=== PATIENT | male | born 1970 | race Two or more races ===

== ENCOUNTER 2017-11-02 14:30 | Emergency (ER) | payer SELFPAY ==
[~2017-11-02] VITALS: Ht 182.9 cm; Wt 90.7 kg
--- NOTE | 2017-11-02 14:35 | NUR ---
PT BIBRA FROM HOME TO ER BED 14. PER REPORT, POSSIBLE OD TO HEROIN. 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 ADMITS TO BEEN DRINKING. PLACED ON MONITOR. STABLE VITALS. AWAITING MD BRAVO.
--- NOTE | 2017-11-02 14:54 | NUR ---
DR VALLES AT BEDSIDE FOR EVAL.
--- NOTE | 2017-11-02 14:58 | NUR ---
COOK BOAT AT BEDSIDE FOR BLOOD DRAW.
[2017-11-02 15:05] LABS: BASOPHILS # (AUTO) 0.1 /CMM (0.0-0.2); BASOPHILS % (AUTO) 0.7 % (0.0-2.0); EOSINOPHILS # (AUTO) 0.2 /CMM (0.0-0.7); EOSINOPHILS % (AUTO) 2.5 % (0.0-6.0); HEMATOCRIT 44 % (39-51); HEMOGLOBIN 15.2 g/dL (13.5-17.5); LYMPHOCYTES # (AUTO) 1.6 /CMM (0.8-4.8); LYMPHOCYTES % (AUTO) 20.3 % (20.0-44.0); MEAN CORPUSCULAR HEMOGLOBIN 32 PG (26.0-33.0); MEAN CORPUSCULAR HGB CONC 34 g/dl (31.0-36.0); MEAN CORPUSCULAR VOLUME 92 fL (80-96); MONOCYTES # (AUTO) 0.5 /CMM (0.1-1.30); MONOCYTES % (AUTO) 6.6 % (2.0-12.0); NEUTROPHILS # (AUTO) 5.4 /CMM (1.8-8.9); NEUTROPHILS % (AUTO) 69.9 % (43.0-81.0); PLATELET COUNT (AUTO) 339 /CMM (150-450); RDW COEFFICIENT OF VARIATION 12.2 (11.5-15.0); RED BLOOD CELL COUNT(AUTO) 4.82 MIL/uL (4.5-6.0); WHITE BLOOD COUNT (AUTO) 7.8 K/uL (4.3-11.0)
[2017-11-02 15:24] LABS: ALANINE AMINOTRANSFERASE 50 U/L (12-78); ALBUMIN 3.8 g/dL (3.4-5.0); ALCOHOL, BLOOD 138 mg/dL (0-0); ALKALINE PHOSPHATASE 114 U/L (46-116); ASPARTATE AMINOTRANSFERASE 86 U/L (15-37); BILIRUBIN,DIRECT 0.1 mg/dL (0.0-0.2); BILIRUBIN,TOTAL 0.3 mg/dL (0.2-1.0); CALCIUM, SERUM 9.1 mg/dL (8.5-10.1); CARBON DIOXIDE 26 mmol/L (21-32); CHLORIDE 107 mmol/L (98-107); GLUCOSE 103 mg/dL (74-106); POTASSIUM 3.5 mmol/L (3.5-5.1); SODIUM SERUM 143 mmol/L (136-145); UREA NITROGEN, BLOOD 12 mg/dL (7-18)
[2017-11-02 15:25] LABS: ACETAMINOPHEN < 2 ug/ml (10-30); SALICYLATE 1.7 mg/dL (2.8-20.0)
--- NOTE | 2017-11-02 16:02 | NUR ---
PT STILL REFUSING TO PROVIDE URINE SAMPLE.
[2017-11-02 17:37] LABS: APPEARANCE,URINE Clear (CLEAR); BILIRUBIN,URINE Negative (NEGATIVE); BLOOD, URINE Trace-intact Ery/uL (NEGATIVE); COLOR,URINE Yellow (YELLOW); KETONES,URINE Negative (NEGATIVE); LEUKOCYTE ESTERASE ,URINE Negative (NEGATIVE); NITRITE, URINE Negative (NEGATIVE); PROTEIN,URINE 30 mg/dl (NEGATIVE); UGLUCOSE Negative (NEGATIVE); UROBILINOGEN,URINE 0.2 EU/dL (0.2)
[2017-11-02 17:56] LABS: BACTERIA,URINE Rare /HPF (None Seen); HYALINE CASTS, URINE Few /LPF (None Seen); MUCUS,URINE Few /LPF (None Seen); SQUAMOUS EPITHELIAL CELL,UR Few /HPF (None Seen); WBC,URINE 0-2 /HPF (0-3)
[2017-11-02 18:27] VITALS: BP 145/89
--- NOTE | 2017-11-02 18:29 | NUR ---
Patient discharged to home in stable condition. Written and verbal after care instructions given. Patient verbalizes understanding of instruction.
== END 2017-11-02 18:43 | disposition home or self-care (01) ==
LOC: ER 14:32
DX: F11.10 Opioid abuse, uncomplicated (principal); F10.10 Alcohol abuse, uncomplicated
CPT/HCPCS: 36415; 71045; 80048; 80076; 80305; 80329; 81001; 85025; 99285; A4606; G0480 ×2; Z7610; 81000-TC